=== PATIENT | male | born 1965 | race Caucasian/White ===

== ENCOUNTER 2023-05-26 05:38 | Day surgery (SDC) | payer BC ==
[2023-05-26 09:33] VITALS: BMI 27.8
[2023-05-26 10:25] VITALS: TEMP 97
[2023-05-26 10:49] VITALS: RESP 20
[2023-05-26 11:03] VITALS: BP 118/76; PULSE 59
== END 2023-05-26 11:22 | disposition home or self-care (01) ==
LOC: JASU-ENDO 05:38
PROVIDERS: ATTEND Student in an Organized Health Care Education/Training Program
PROC: 0DBH8ZX Excision of Cecum, Via Natural or Artificial Opening Endoscopic, Diagnostic (ICD-10-PCS; principal; 2023-05-26 11:00)
DX: Z12.11 Encounter for screening for malignant neoplasm of colon (principal); K63.5 Polyp of colon; Z86.010 Personal history of colon polyps
CPT/HCPCS: 88305-TC